=== PATIENT | male | born 1965 | race Caucasian/White ===

== ENCOUNTER 2019-09-21 21:32 | Outpatient (CLI) | payer OTHER ==
[~2019-09-21] VITALS: Ht 167.6 cm; Wt 77.3 kg
--- NOTE | ~2019-09-21 | HEMODYNAMI ---
PATIENT:LIBRA EMANUEL MEDICAL RECORD: [id number] : 65 LOCATION:[facility] D.[address] [facility]# [id number] ADMISSION DATE: 09/21/19 Generatedon:09/22/201911:15 Patient name: LIBRA EMANUEL Patient #: [id number] : 1965 Date of study: 09/22/2019 Page: Of Hemodynamic Procedure Report Patient Data Patient Demographics Procedure consent was obtained First Name: LIBRA Gender: Male Last Name: JENAE : 1965 Middle Initial: RANDI Age: 54 year(s) Patient #: [id number] Race: Unknown SSN: [id number] Additional ID: [id number] Contact details [address]: [address] [place] [address] State: [place] City: [place] Zip code: [address] Admission Admission Data Admission Date: 09/21/2019 Admission Time: 21:32 Arrival Date: 09/22/2019 Arrival Time: 21:32 Admit Source: Emergency Insurance Payor: [facility] Care Room #: D.2118 [facility] #: [id number] Height (in.): 66 BSA: 1.87 (m2) Height (cm.): 167.64 BMI: 27.4 (kg/m2) Weight (lbs.): 169.76 Weight (kg.): 77 Lab Results Lab Result Date: 09/22/2019 Lab Result Time: 0:00 Biochemistry Name Units Result Min Max BUN mg/dl 10 --(-*--)-- 7 18 Creatinine mg/dl 0.8 --(-*--)-- 0.6 1.3 eGFR ml/min 90 --(*---)-- 90 120 NONAFRICAN CBC Name Units Result Min Max Hemoglobin g/dl 15.4 --(-*--)-- 13.5 17.5 Procedure Procedure Types Cath Procedure Diagnostic Procedure LHC [facility] w/Coronaries Sedation Charges Moderate Sedation up to 15 minutes Procedure Description Procedure Date Procedure Date: 09/22/2019 Procedure Start Time: 11:07 Procedure End Time: 11:13 Procedure Staff Name Function Shelton Salazar MD Performing Physician Donna Willis RT Monitor Stephanie Colon RT Scrub Vero Soriano RN Nurse Procedure Data Cath Procedure Fluoroscopy Diagnostic fluoroscopy Total fluoroscopy Time: 0.7 time: 0.7 min min Diagnostic fluoroscopy Total fluoroscopy dose: 171 dose: 171 mGy mGy Contrast Material Contrast Material Type Amount (ml) Isovue 300 28 Entry Location Entry Primary Successful Side Size Upsize Upsize Entry Closure Succes sful Closure Location (Fr) 1 (Fr) 2 (Fr) Remarks Device Remarks Femoral Right 5 Fr Exoseal artery Estimated blood loss: 5 ml Diagnostic catheters Device Type Used For End Catheter Placement MULTIPACK Pigtail 5 Fr LV Angiography catheter MULTIPACK JL 4.0 5Fr Left Coronary catheter Angiography MULTIPACK 3DRC 5Fr Right Coronary catheter Angiography Procedure Complications No complications Procedure Medications Medication Administration Route Dosage 0.9% NaCl I.V. 100 ml/hr Oxygen etCO2 Nasal cannula 2 l/min Lidocaine 2% added to field 20 Heparin Flush Bag added to field 2 bags (1000units/500ml NS) Versed I.V. 2 mg Fentanyl I.V. 50 mcg Versed I.V. 2 mg Fentanyl I.V. 50 mcg Hemodynamics Rest BSA: 1.87 (m2) HGB: 15.4 (g/dl) O2 Consumption: Estimated: 223.64 (ml/min) O2 Co nsumption indexed: Estimated:119.59 (ml/min/m) Heart Rate: 72 (bpm) Pressure Samples Time Site Value (mmHg) Purpose Heart Use Rate(bpm) 11:08 LV 134/-2,6 Snapshot 83 Snapshots Pre Cath Intra NCS Post Cath Vital Signs Time Heart Resp SPO2 etCO2 NIBP (mmHg) Rhythm Pain Sedation Rate (ipm) (%) (mmHg) Status Level (bpm) 10:36:55 73 13 98 34.1 135/81(112) NSR 0 (11) 10(A) , No pain 10:41:09 72 11 97 26.5 135/79(121) NSR 0 (11) 10(A) , No pain 10:45:21 74 15 96 0 130/82(101) NSR 0 (11) 10(A) , No pain 10:49:33 75 17 96 0 130/76(100) NSR 0 (11) 10(A) , No pain 10:53:44 73 11 96 0.7 120/72(102) NSR 0 (11) 10(A) , No pain 10:57:52 76 14 96 37.2 120/77(92) NSR 0 (11) 10(A) , No pain 11:02:00 78 17 97 37.9 119/76(104) NSR 0 (11) 10(A) , No pain 11:06:10 75 12 97 34.9 119/68(114) NSR 0 (11) 10(A) , No pain 11:10:16 83 11 97 35.6 117/79(104) NSR 0 (11) 10(A) , No pain 11:14:20 85 12 96 37.2 127/83(110) NSR 0 (11) 10(A) , No pain Medications Time Medication Route Dose Verified Delivered Reason Notes Eff ectiveness by by 10:35:55 0.9% NaCl I.V. 100 Shelton Vero used for ml/hr Martin Soriano cna pct 10:36:02 Oxygen etCO2 2 Shelton Vero used for Nasal l/min Martin Soriano procedure cannula RN 10:36:07 Lidocaine 2% added 20ml Shelton Shelton for local to vial Martin Salazar MD anesthetic field 10:36:12 Heparin Flush added 2 Shelton Shelton used for Bag to bags Martin Salazar MD procedure (1000units/500ml field NS) 11:00:05 Fentanyl I.V. 50 Shelton Vero for mcg Martin Soriano sedation RN 11:00:49 Versed I.V. 2 mg Shelton Vero for Martin Soriano sedation RN 11:05:02 Versed I.V. 2 mg Shelton Vero for Martin Soriano sedation RN 11:05:08 Fentanyl I.V. 50 Shelton Vero for mcg Martin Soriano sedation gas dispenser Log Time Note 10:21:02 Diagnostic Cath Status : Elective 10:21:19 Informed consent obtained and on chart 10:21:55 Admit Source: Emergency department 10:21:57 Arrival Date: 09/22/2019 9:32:00 PM 10:22:50 Insurance Payor : [facility] 10:22:55 Patient Height : 66 inches 10:23:03 Patient Weight : 169.76 lbs 10::35 Lab Result : eGFR NONAFRICAN 90 ml/min 10::35 Lab Result : Creatinine 0.8 mg/dl 10::35 Lab Result : BUN 10 mg/dl 10::35 Lab Result : Hemoglobin 15.4 g/dl 10::42 Procedure Status Urgent Heart Cath (IP). 10::44 Stehpanie Colon RT(R) sent for patient. Start room use. 10::44 Time tracking: Regular hours (M-F 7:00 - 5:00) 10:23:49 Plan of Care:Hemodynamics will remain stable., Cardiac rhythm will remain stable., Comfort level will be maintained., Respiratory function will remain adequate., Patient/ family verbilizes understanding of procedure., Procedure tolerated without complication., Recovers from procedure without complications.. 10:35:47 Vital chart was started 10:35:55 0.9% NaCl 100 ml/hr I.V. was administered by Vero Soriano RN; used for procedure; Verbal order read back and verified. 10:36:02 Oxygen 2 l/min etCO2 Nasal cannula was administered by Vero Soriano RN; used for procedure; Verbal order read back and verified. 10:36:07 Lidocaine 2% 20ml vial added to field was administered by Shelton Salazar MD; for local anesthetic; Verbal order read back and verified. 10:36:12 Heparin Flush Bag (1000units/500ml NS) 2 bags added to field was administered by Shelton Salazar MD; used for procedure; Verbal order read back and verified. 10:38:27 Patient received from Med II to CCL 2 Alert and oriented. Tansferred to table in Supine position. 10:38:28 Warm blankets applied, and kory hugger turned on for patient comfort. 10:38:28 Correct patient and procedure confirmed by team. 10:38:29 Baseline sample Acquired. 10:38:29 ECG and BP/O2 sat monitors applied to patient. 10:38:31 Baseline sample Acquired. 10:38:35 Rhythm: sinus rhythm 10:38:37 Full Disclosure recording started 10:38:40 H&P Date Dictated: 09/22/2019 New H&P dictated by physician.. 10:38:42 Pre-procedure instructions explained to patient. 10:38:42 Pre-op teaching completed and patient verbalized understanding. 10:38:44 Family in waiting room. 10:38:45 Patient NPO since Midnight. 10:39:08 Is the patient allergic to Iodine/contrast media? No. 10:39:17 Was the patient premedicated? No 10:39:57 Is patient on blood thinner?No 10:39:59 Patient diabetic? No. 10:40:03 Previous problem with sedation/anesthesia? No ? 10:40:04 Snore? Yes 10:40:06 Sleep apnea? No 10:40:07 Deviated septum? Yes 10:40:08 Opens mouth fully? Yes 10:40:11 Sticks out tongue? Yes 10:40:23 Airway obstruction? No ? 10:40:28 Dentures? No ? 10:40:33 Pre procedure: right dorsailis pedis pulse 2+ Normal; easily identifiable; not easily obliterated 10:40:36 Pre procedure: left dorsailis pedis pulse 2+ Normal; easily identifiable; not easily obliterated 10:40:39 Patient pain scale 0/10 ?. 10:40:52 IV patent on arrival in left forearm with 0.9% NaCl at [facility]. 10:40:54 Lab results completed and on chart. 10:41:00 Risk of Mortality: 3.7 10:41:04 Risk of blood transfusion: 1.4 10:41:09 Risk of ДМИТРИЙ: 10.5 10:41:17 Right groin area was prepped with chlora-prep and draped in sterile fashion 10:41:18 Alarms reviewed by R. N. 10:41:19 Sharps counted by scrub and verified by R.N. 10:42:56 1) 90+ Normal kidney functon but urine findings or structural abnormalities or genetic trait point to kidney disease. 10:43:01 Maximum allowable contrast dose (3.7 X eGFR X 0.75)249 ml. 10:59:35 Physician arrived 10:59:36 --------ALL STOP TIME OUT------ 10:59:36 Final Timeout: patient, procedure, and site verified with staff and physician. All members of the team are in agreement. 10:59:40 Right groin site verified by team. 10:59:43 Fire Safety Assessment: A--An alcohol-based skin anteseptic being used preoperatively., C--Open oxygen or nitrous oxide is being used., D--An ESU, laser, or fiber-optic light is being used. 10:59:52 Physical assessment completed. ASA score P 2 - A patient with mild systemic disease as per Shelton Salazar MD. 11:00:00 Sedation plan: IV Moderate Sedation Medication:Versed, Fentanyl 11:00:05 Fentanyl 50 mcg I.V. was administered by eVro Soriano RN; for sedation; Verbal order read back and verified. 11:00:05 Use device set Femoral Dx 11:00:06 ACIST Syringe (37411) opened to sterile field. 11:00:07 Bag Decanter (2002S) opened to sterile field. 11:00:08 Medline Cath Pack (QOPP73722) opened to sterile field. 11:00:09 ACIST Hand Control (04801) opened to sterile field. 11:00:10 ACIST Manifold (60993) opened to sterile field. 11:00:10 DIAGNOSTIC Multipack 5Fr catheter set (QG5280) opened to sterile field. 11:00:11 Tegaderm 4 x 4 (1626W) opened to sterile field. 11:00:12 SHEATH 5FR [place] (IKC701) opened to sterile field. 11:00:12 EMERALD Guide Wire (630-227) opened to sterile field. 11:00:49 Versed 2 mg I.V. was administered by Vero Soriano RN; for sedation; Verbal order read back and verified. 11:05:02 Versed 2 mg I.V. was administered by Vero Soriano RN; for sedation; Verbal order read back and verified. 11:05:08 Fentanyl 50 mcg I.V. was administered by Vero Soriano RN; for sedation; Verbal order read back and verified. 11:05:28 Zero performed for pressure channel P1 11:07:48 Procedure started. 11:07:53 Local anesthetic to right femoral artery with Lidocaine 2% by Shelton Salazar MD.INITIAL ACCESS ONLY 11:08:14 A 5 Fr sheath was inserted into the Right Femoral artery 11:08:20 A MULTIPACK Pigtail 5 Fr catheter was advanced over the wire and used for LV Angiography. 11:08:50 LV hemodynamics recorded. 11:08:51 LV gram done using ZUÑIGA 11:08:56 Injector settings: Ml/sec: 5, Volume: 15, 11:09:05 EF : 60 % 11:09:16 Catheter removed. 11:09:23 A MULTIPACK JL 4.0 5Fr catheter was advanced over the wire and used for Left Coronary Angiography. 11:09:50 LCA angiography performed. 11:09:53 Injector settings: Ml/sec: 3, Volume: 6, 11:10:04 Catheter removed. 11:10:09 A MULTIPACK 3DRC 5Fr catheter was advanced over the wire and used for Right Coronary Angiography. 11:10:48 RCA angiography performed. 11:10:51 Injector settings: Ml/sec: 3, Volume: 6, 11:11:00 Catheter removed. 11:11:04 EXOSEAL 5Fr (EX500) opened to sterile field. 11:11:14 Sheath removed intact; hemostasis achieved with Exoseal to the Right Femoral artery. 11:11:16 Procedure ended.(Physican Out) 11:11:33 Fluoroscopy time 00.70 minutes. 11:11:38 Fluoroscopy dose: 171 mGy 11:11:38 Flurop Dose total: 171 11:12:01 Dose Area Product 9925 mGy/cm. 11:12:07 Contrast amount:Isovue 300 28ml. 11:12:14 Maximum allowable dose exceeded? No. 11:12:15 Sharps counted by scrub and verified by R.N. 11:12:16 Insertion/operative site no bleeding no hematoma. 11:12:18 Post-op/insertion site Right Femoral artery dressed using a 4 x 4 and Tegaderm. 11:12:58 Post Procedure Pulses reassessed and unchanged 11:13:01 Post procedure rhythm: unchanged. 11:13:03 Estimated blood loss: 5 ml 11:13:05 Post procedure instruction explained to patient.Patient verbalizes understanding. 11:13:05 Patient needs reinforcement of post procedure teaching. 11:13:17 Procedure type changed to Cath procedure, Diagnostic procedure, LHC, LHC w/Coronaries, Sedation Charges, Moderate Sedation up to 15 minutes 11:13:18 Procedure and supply charges have been captured, reviewed, submitted and are correct. 11:13:22 Procedure Complication : No complications 11:13:47 Vital chart was stopped 11:13:49 [facility] Findings: mild to moderate CAD (<70%) 11:13:51 Operative report dictated upon procedure completion. 11:13:51 See physician's report for complete and final results. 11:13:54 Report given to [facility]. 11:13:56 Patient transfered to [facility] with Stretcher. 11:13:58 Procedure ended. 11:13:58 Full Disclosure recording stopped 11:14:03 End room use (Document Last) 11:14:39 End room use (Document Last) 11:15:04 End room use (Document Last) Device Usage Item Name Manufacture Quantity Catalog Hospital Part Current Minimal L ot# / Number Charge Number Stock Stock Serial# Code ACIST Acist 1 79727 363175 [id number] 151371 20 Syringe Medical (31007) Systems Inc Bag Microtek 1 813986 30789 395691 5 Decanter Medical Inc. () Medline Medline 1 [id number] 785733 42286 752390 5 Cath Pack ([id number]) ACIST Hand Acist 1 45348 676973 401810 855255 5 Control Medical (67373) Systems Inc ACIST Acist 1 60803 687521 093933 493456 5 Manifold Medical (10929) Systems Inc DIAGNOSTIC Cardinal 1 AB5096 201512 68743 263484 30 Multipack Health 5Fr catheter set (DA2791) Tegaderm 4 3M 1 1626W 255822 375579 419546 5 x 4 (1626W) SHEATH 5FR Terumo 1 GOI754 766744 066007 638674 5 [place] (YTK069) EMERALD Cardinal 1 502-455 416370 974796 620657 5 Guide Wire Health (502-455) MULTIPACK Cardinal 1 725481 5 Pigtail 5 Health Fr catheter MULTIPACK Cardinal 1 486522 5 JL 4.0 5Fr Health catheter MULTIPACK Cardinal 1 676653 5 3DRC 5Fr Health catheter EXOSEAL 5Fr Cardinal 1 EX500 555076 351589 769589 10 (EX500) Health Signature Audit [place] Stage Time Signature Unsigned Intra-Procedure 09/22/2019 Donna Willis 11:14:39 AM RT(R) Intra-Procedure 09/22/2019 Vero Soriano 11:15:04 AM RN Intra-Procedure 09/22/2019 Shelton Salazar 11:15:34 AM MD Signatures Performing Physician : Signature : Shelton Salazar MD Date : Time : Monitor : Donna Willis RT Signature : Date : Time : Nurse : Vero Soriano RN Signature : Date : Time : [facility] [address] [place] [address]
[~2019-09-21 21:32] MED LIST: ABILIFY10 MG PO; BENTYL10 MG PO; CYCLOBENZAPRINE10 MG PO; CYMBALTA60 MG PO; FLUTICASONE PRO16 GM NS; HYDROCODONE-APA1 TAB PO; INDERAL 40 MG T40 MG PO; LIDOCAINE 5 % O35 GM TP; METAMUCIL1042 GM PO; MOBIC7.5 MG PO; PRILOSEC20 MG PO; VITAMIN E400 UNI2 PO
[2019-09-21] MEDS ORDERED: FLOMAX0.4 MG PO (21:43)
[2019-09-21] MEDS ORDERED: ZYRTEC10 MG PO (21:43)
[2019-09-21] MEDS ORDERED: PROSCAR5 MG PO (21:43)
[2019-09-21] MEDS ORDERED: OMEPRAZOLE20 M1 PO (21:44)
[2019-09-21] MEDS ORDERED: TRAZODONE HCL150 MG PO (21:44)
[2019-09-21] MEDS ORDERED: FISH OIL 1,0001 CA1 PO (21:44)
[2019-09-21] MEDS ORDERED: VOLTAREN75 MG PO (21:44)
[2019-09-21 22:20] LABS: BASOPHILS 0.5 % (0-2); EOSINOPHILS 1.7 % (0-7); HEMATOCRIT 43.8 % (42.0-54.0); HEMOGLOBIN 15.4 g/dL (13.5-17.5); IMMATURE GRANULOCYTES 1.5 % (0-5); LYMPHOCYTES 30.5 % (15-50); MCH 32.8 pg (26.0-34.0); MCHC 35.2 g/dL (31.0-37.0); MCV 93.4 fL (80.0-100.0); MEAN PLATELET VOLUME 9.8 fL (7.4-10.4); MONOCYTES 9.9 % (2-11); NEUTROPHILS 55.9 % (40-80); PLATELET COUNT 202 10x3/uL (130-400); RBC 4.69 10x6/uL (4.20-6.10); RDW 12.3 % (11.5-14.5); WBC 7.6 10x3/uL (4.8-10.8)
[2019-09-21 22:27] LABS: APTT 24.8 SECONDS (22.8-39.4); INR 0.92 (0.85-1.17); PROTIME 12.3 SECONDS (11.6-15.0)
[2019-09-21 22:28] LABS: D-DIMER-QUANTITATIVE 0.28 ug/mLFEU (0.20-0.54)
[2019-09-21 22:30] LABS: CALC OSMOLALITY 270 mosm/kg (275-300); CALCIUM 8.7 mg/dL (8.5-10.1); CARBON DIOXIDE 29.2 mmol/L (21.0-32.0); CHLORIDE - SERUM 100 mmol/L (98-107); CREATININE - SERUM 0.8 mg/dL (0.6-1.3); GLUCOSE 104 mg/dL (74-106); POTASSIUM - SERUM 3.7 mmol/L (3.5-5.1); SODIUM 136 mmol/L (136-145); UREA NITROGEN 10 mg/dL (7-18); eGFR NON AFRICAN AMERICAN > 90 mL/min (90-120)
[2019-09-21 22:40] LABS: ALBUMIN 3.8 g/dL (3.4-5.0); ALKALINE PHOSPHATASE 68 U/L (46-116); ALT (SGPT) 228 U/L (10-68); BILIRUBIN - TOTAL 0.67 mg/dL (0.2-1.3); LIPASE 132 U/L (73-393); MAGNESIUM - SERUM 1.9 mg/dL (1.8-2.4); PRO BNP 22 pg/mL (0-125); PROTEIN - SERUM 7.1 g/dL (6.4-8.2); THYROID STIMULATING HORMONE 1.34 uIU/mL (0.36-3.74); TROPONIN-I < 0.017 ng/mL (0.000-0.060)
[2019-09-22 05:03] VITALS: BP 104/59
[2019-09-22 08:00] VITALS: BP 104/54
[2019-09-22 08:05] VITALS: Ht 167.6 cm; Wt 77.3 kg
--- NOTE | 2019-09-22 09:08 | NUR ---
CONSENTS SIGNED FOR [facility]. WILL CONT. PLAN OF CARE.
--- NOTE | 2019-09-22 10:25 | NUR ---
PRE-OPS GIVEN. TO [employer]GGER BY BED.
--- NOTE | 2019-09-22 11:13 | HP ---
PATIENT: LIBRA EMANUEL MEDICAL RECORD: [id number] ACCOUNT: [id number] LOCATION:[address] : 65 ADMISSION DATE: 09/21/19 PCP: SAJAN, DOCTOR HISTORY AND PHYSICAL EXAMINATION DIAGNOSES: 1. Unstable angina. 2. Hypertension. 3. Hyperlipidemia. 4. Family history of coronary artery disease. HISTORY OF PRESENT ILLNESS: Mr. Emanuel is a gentleman with no history of ischemic heart disease, began having chest discomfort on while visiting [facility]. He has had progression of the chest pain. Last night, he had severe chest pain that was lasting for hours, it is a very classic anginal pain with a dull aching sensation across the anterior chest, a band-like sensation, a pressure-like sensation. He did have radiation to his left arm and left shoulder area. He was given multiple sublingual nitro. The pain has returned this morning. He is currently having 4/10 chest pain. He has a very strong family history of coronary artery disease. He has hypertension being treated at the [facility] as well as hyperlipidemia. He has no smoking history. His troponin is normal. PHYSICAL EXAMINATION: CONSTITUTIONAL/GENERAL APPEARANCE: Well nourished, well developed, appears stated age. EYES: Lids and conjunctivae noninjected. No discharge. No pallor. ENT: Lips within normal limit. No cyanosis. No pallor. NECK: Carotid arteries, bilateral normal upstroke. No bruits. No thrills. No jugular venous pressure or distention. CERVICAL LYMPH NODES: Nontender. Nonenlarged. THYROID: Not enlarged. No nodules. CARDIOVASCULAR: Precordial exam, nondisplaced. No heaves or pericardial thrills. Rate and rhythm, regular. Heart sounds, normal S1, normal S2. No S3, no gallop, no rub. Systolic murmur, not heard. Diastolic murmur, not heard. RESPIRATORY: Respiratory effort, unlabored. Normal curvature. No thoracic deformity. No chest wall tenderness. Percussion, resonant. Auscultation, clear. No wheezes, no rales, no rhonchi. ABDOMEN: Soft, nondistended, nontender. No abdominal pain, no vomiting and normal appetite. MUSCULOSKELETAL: No joint tenderness, normal gait, normal tone. SKIN: Warm and dry. OVERALL IMPRESSION: Unstable angina in a progressive fashion. He has been on aspirin that he started when he began having the chest pain on and [facility] blood [facility]. Despite that, he has had progression of his pain. We will proceed with coronary angiography. Further care depends upon the findings of the angiography. TRANSINT:[id number] Voice Confirmation ID: [id number] DOCUMENT ID: [id number] HISTORY AND PHYSICAL [id number] LIBRA EMANUEL JEFFREY MD at 1113 CC: [id number] DICTATION DATE: 09/22/19 08 TECHNOLOGY PROFESSIONAL: 09/22/19 0904 REG [facility] [address] [place] [address]
--- NOTE | 2019-09-22 11:37 | NUR ---
BACK FROM [employer] BUSINESS CONSULTANT. VS WNL. RIGHT GROIN STABLE WITHOUT BLEEDING OR HEMATOMA NOTED. WILL MONITOR.
[2019-09-22 12:23] VITALS: BP 122/71
--- NOTE | 2019-09-22 15:03 | NUR ---
IV AND TELEMETRY DCD. DC PLANS GIVEN. UNDERSTANDING VOICED. ESCORTED TO CAR BY W/C.
--- NOTE | 2019-09-23 14:04 | EC ---
PATIENT:LIBRA EMANUEL DATE OF SERVICE: 09/21/19 SEX: M MEDICAL RECORD: [id number] DATE OF : 65 LOCATION:D.CAT AGE OF PATIENT: 54 ADMISSION DATE: 09/21/19 REFERRING PHYSICIAN: INTERPRETING PHYSICIAN: MERRILL SALAZAR MD ECHOCARDIOGRAM REPORT ECHO CHARGES 4 ECHO COMPLETE Date: 09/22/19 CLINICAL DIAGNOSIS: UNSTABEL ANGINA ECHOCARDIOGRAPHIC MEASUREMENTS (adult normal given) AC root (d.<3.7cm) 3.3 cm LV Septum d (<1.2 cm> 1.1 cm Valve Excursion 1.5 cm LV Septum (systole) 1.5 cm Left Atria (s.<4.0cm> 2.9 cm LVPW d(<1.2cm) 1.4 cm RV (d.<2.3cm) 3.3 cm LVPW (sytole) 1.5 cm LV diastole(<5.6CM) 4.1 cm MV E-F(>70mm/sec) cm LV systole 2.7 cm LVOT Diameter 1.8 cm MV exc.(>10mm) 1.8 cm Est.ejection fraction (50-75%) % DOPPLER: LVIT cm/sec A 62.0 cm/sec E 52.0 cm/sec LA cm/sec RVSP 16 mmHg LVOT 88 cm/sec AOP1/2T m/s Asc. Ao 115 cm/sec RVOT 72 cm/sec RA cm/sec PA 130 cm/sec AV Gradient Peak 5.25 mmHg AV Mean 2.60 mmHg AV Area 1.9 cm MV Gradient Peak 3.68 mmHg MV Mean 1.33 mmHg MV Area cm COMMENTS: Authorization Coordinator: Glenis DAUGHERTY Director Perioperative: 1 Dr. Salazar TAPE# PACS Pericardial Effusion N DATE OF SERVICE: FINDINGS: 1. Left ventricular chamber size is within normal limits. Left ventricular systolic function is normal. Overall ejection fraction estimated at 55%. 2. Left atrium, right atrium, and right ventricle chamber sizes are within normal limits. 3. Valvular structures have normal structure and motion. 4. Doppler interrogation reveals trace mitral regurgitation, trace tricuspid regurgitation, no other valvular insufficiency or stenosis. ECHOCARDIOGRAM REPORT [id number] LIBRA EMANUEL 5. No evidence of pericardial effusion or left ventricular thrombus. TRANSINT:[id number] Voice Confirmation ID: [id number] DOCUMENT ID: [id number] MERRILL SALAZAR MD at 1404 CC: [id number] DICTATION DATE: 09/22/19 162 MANAGER MENTAL HEALTH: 09/23/19 0222 DEP CLI 09/22/19 [place] [address]50 [place] [id number]
--- NOTE | 2019-09-23 14:04 | OP ---
PATIENT NAME: LIBRA EMANUEL MEDICAL RECORD: [id number] :65 LOCATION:D.CAT ADMISSION DATE: SURGEON: MERRILL GAVLEZ MD DATE OF OPERATION: 09/22/2019 DATE OF SERVICE: 09/22/2019 PROCEDURES: 1. Left heart catheterization. 2. Selective coronary angiography. 3. Left ventriculogram. INDICATION: Chest pain compatible with angina. PROCEDURE IN DETAIL: After informed consent was obtained and after a detailed description of the risks, benefits as well as alternative therapies, the patient elected to proceed with angiogram and heart catheterization. The right femoral area was prepped and draped in normal sterile fashion. Right femoral artery was cannulated via modified Seldinger technique with placement of 6-[place] sheath. All catheters exchanged through this sheath. FINDINGS: Left ventriculogram was performed in standard 30-degree ZUÑIGA view, reveals good cardiac wall motion throughout segments. Overall ejection fraction estimated at 60%. SELECTIVE CORONARY ANGIOGRAPHY: Left main, left anterior descending, left circumflex, right coronary artery are all smooth-walled vessels with no angiographic evidence of coronary artery disease. OVERALL IMPRESSION: 1. No angiographic evidence of coronary artery disease. 2. Normal left heart pressures. 3. Normal left ventricular systolic function. Chest pain is noncardiac in etiology. No further cardiac workup needs to be ascertained. TRANSINT:[id number] Voice Confirmation ID: [id number] DOCUMENT ID: [id number] MERRILL GALVEZ MD at 1404 CC: [id number] DICTATION DATE: 09/22/19 1117 WELDER TECH: 09/22/19 1428 [facility] CLI 09/22/19 [place] [address]
--- NOTE | 2019-09-23 14:04 | DS ---
PATIENT:LIBRA EMANUEL :65 MEDICAL RECORD: [id number] DISCHARGE SUMMARY ADMISSION DATE: 09/21/19 DISCHARGE DATE: 09/22/19 DATE OF DISCHARGE: 09/22/2019. DIAGNOSES: 1. Chest pain. 2. Normal cardiac catheterization. Mr. Emanuel presents with chest pain compatible with angina; however, cardiac catheterization is normal. He was sent to his primary care physician for workup of noncardiac chest pain. TRANSINT:[id number] Voice Confirmation ID: [id number] DOCUMENT ID: [id number] MERRILL GALVEZ MD at 1404 CC: [id number] DICTATION DATE: 09/22/19 1118 MEDICAL EDUCATION MANAGER: 09/23/19 0751 [facility] CLI 09/22/[address] [address]
== END 2019-09-22 15:05 ==
LOC: D.M2 21:32 → D.ER 21:32 → D.CATH 21:32 → D.M2 09-22 00:07 → D.CATH 09-22 15:05
PROVIDERS: Family Medicine; ATTEND Internal Medicine Interventional Cardiology
DX: I20.0 Unstable angina (principal); R07.9 Chest pain, unspecified; I10 Essential (primary) hypertension; E78.5 Hyperlipidemia, unspecified; Z82.49 Family history of ischemic heart disease and other diseases of the circulatory system